=== PATIENT | female | born 1990 | race Caucasian/White ===

== ENCOUNTER 2024-09-08 10:17 | Outpatient (REF) | payer OTHER, SELFPAY ==
[2024-09-08 14:46] LABS: HGB 14.9 g/dL (11.2-15.7); MCH 28.5 pg (27.0-33.0); MCHC 31.7 % (32.0-36.0); MCV 90 fL (80-95); MPV 9.8 fL (8.0-11.0); Platelet Count 330 10^3/uL (130-400); RBC 5.23 10^6/uL (3.93-5.22); RDW 12.6 % (11.7-14.6); RDW-SD 41.8 fL
[2024-09-12 20:57] LABS: JAK2 Result see interpretation
== END 2024-09-08 10:18 | disposition home or self-care (01) ==
LOC: NCHCN 10:17
PROVIDERS: PCP Family Medicine; Visit Provider Family Medicine
DX: Z83.2 Family history of diseases of the blood and blood-forming organs and certain disorders involving the immune mechanism (principal)
CPT/HCPCS: 85027; 81270